=== PATIENT | male | born 1955 | race Caucasian/White ===

== ENCOUNTER 2021-06-12 10:38 | Emergency (ER) | payer OTHER ==
[2021-06-12 10:58] VITALS: BP 119/59; PULSE 74; TEMP 97.9; BMI 21.9
== END 2021-06-12 13:52 | disposition home or self-care (01) ==
LOC: JER 10:38
DX: Z04.3 Encounter for examination and observation following other accident (principal); W19.XXXA Unspecified fall, initial encounter; Y92.9 Unspecified place or not applicable
CPT/HCPCS: 70450-TC; 72125-TC; 99284-25

== ENCOUNTER 2022-08-06 17:31 | Emergency (ER) | payer OTHER ==
[2022-08-06] MEDS ORDERED: DIPHTH,PERTUSS(ACELL),TET 0.5 ML DISP.SYRIN IM ONE ×2 (17:50→17:55)
[2022-08-06 17:52] VITALS: BP 111/57; PULSE 75; RESP 18; TEMP 98.2; BMI 25.0
== END 2022-08-06 20:09 | disposition home or self-care (01) ==
LOC: SUPCPDRO 17:31 → FER 17:31
PROC: 3E0234Z Introduction of Serum, Toxoid and Vaccine into Muscle, Percutaneous Approach (ICD-10-PCS; principal; 2022-08-06)
DX: S00.93XA Contusion of unspecified part of head, initial encounter (principal); V00.181A Fall from other rolling-type pedestrian conveyance, initial encounter
CPT/HCPCS: 70450-TC; 72125-TC; 90471; 90715; 99284-25

== ENCOUNTER 2022-12-11 19:55 | Emergency (ER) | payer OTHER ==
[2022-12-11 20:33] VITALS: BP 112/56; PULSE 72; RESP 16; TEMP 97.8; BMI 25.0
== END 2022-12-11 21:02 | disposition home or self-care (01) ==
LOC: FER 19:55
DX: Z04.1 Encounter for examination and observation following transport accident (principal)
CPT/HCPCS: 99282-25

== ENCOUNTER 2023-02-03 17:18 | Emergency (ER) | payer OTHER ==
[2023-02-03] MEDS ORDERED: DIPHTH,PERTUSS(ACELL),TET 0.5 ML DISP.SYRIN IM ONE ×2 (17:34→18:04)
== END 2023-02-03 18:23 | disposition home or self-care (01) ==
LOC: FER 17:18
PROC: 3E0234Z Introduction of Serum, Toxoid and Vaccine into Muscle, Percutaneous Approach (ICD-10-PCS; principal; 2023-02-03)
DX: S60.512A Abrasion of left hand, initial encounter (principal); W01.0XXA Fall on same level from slipping, tripping and stumbling without subsequent striking against object, initial encounter
CPT/HCPCS: 73130-TC-LT-FY; 90471; 90715; 99283-25

== ENCOUNTER 2023-02-22 10:56 | Emergency (ER) | payer OTHER ==
[2023-02-22 11:09] VITALS: BP 103/56; PULSE 80; RESP 16; TEMP 97.4; BMI 25.0
== END 2023-02-22 11:39 | disposition home or self-care (01) ==
LOC: FER 10:56
DX: S20.411A Abrasion of right back wall of thorax, initial encounter (principal); W01.198A Fall on same level from slipping, tripping and stumbling with subsequent striking against other object, initial encounter
CPT/HCPCS: 99282-25

== ENCOUNTER 2023-05-30 12:38 | Inpatient (IN) | payer OTHER ==
[2023-05-30] MEDS: SODIUM CHLORIDE 0.9% 1000 ML INFUS.BAG IV ONE (13:46)
[2023-05-30 13:54] LABS: HEMATOCRIT 34.5 % (35.4-49); HEMOGLOBIN 11.3 G/dL (11.7-16.9); MCHC 32.8 g/dl (32.0-35.9); MEAN CELL VOLUME 100.5 fl (80-96); PLATELET COUNT 276.8 10^3/uL (134-434); RBC 3.43 10^6/uL (4.00-5.60); RDW 14.1 % (11.9-15.9); WHITE BLOOD COUNT 27.4 10^3/uL (4.0-10.8)
[2023-05-30 14:05] LABS: ALBUMIN 3.6 g/dl (3.4-5.0); BILIRUBIN,TOTAL 0.4 mg/dl (0.2-1); CREATININE 0.9 mg/dl (0.6-1.3); POTASSIUM 4.7 mmol/L (3.5-5.1); TOT PROT 5.9 g/dl (6.4-8.2)
[2023-05-30] MEDS ORDERED: PIPERACILLIN/TAZOBACTAM 4.5 GM VIAL IVPB ONE (14:07)
[2023-05-30] MEDS: PIPERACILLIN/TAZOB 4.5 GM 4.5 GM in DEXTROSE 5%-WATER 100 ML IVPB ONE (14:15)
[2023-05-30 14:51] LABS: PLATELET ESTIMATE ADEQUATE
[2023-05-30] MEDS ORDERED: ALBUTEROL SO4 2.5/IPRATROPIUM 0.5 INH SOL 3 ML VIAL.NEB. NEB PRN (19:54)
[2023-05-30] MEDS: PIPERACILLIN/TAZOB 3.375 GM 3.375 GM in DEXTROSE 5%-WATER - 50 ML IVPB SCH (22:01)
[2023-05-31] MEDS ORDERED: PIPERACILLIN/TAZOB 3.375 GM 3.375 GM in DEXTROSE 5%-WATER - 50 ML IVPB SCH ×2 (02:00→03:00)
[2023-05-31] MEDS: LEVOTHYROXINE NA 50 MCG TABLET (FP) PO SCH (06:25)
[2023-05-31] MEDS ORDERED: guaiFENesin/D-METHORPHAN HB 10 ML UNIT-DOSE CUPS PO PRN (07:40)
[2023-05-31] MEDS ORDERED: LORATADINE 10 MG TABLET PO PRN (07:41)
[2023-05-31 09:35] LABS: ALBUMIN 3.4 g/dl (3.4-5.0); BILIRUBIN,TOTAL 0.5 mg/dl (0.2-1); CALCIUM 8.7 mg/dl (8.5-10.1); CREATININE 0.9 mg/dl (0.6-1.3); PHOSPHOROUS 3.3 (2.5-4.9); POTASSIUM 4.4 mmol/L (3.5-5.1); TOT PROT 5.5 g/dl (6.4-8.2)
[2023-05-31] MEDS: FERROUS SO4 325 MG TABLET (FP) PO SCH (09:53)
[2023-05-31] MEDS: ALBUTEROL SO4 2.5/IPRATROPIUM 0.5 INH SOL 3 ML VIAL.NEB. NEB SCH (09:53)
[2023-05-31] MEDS: ENOXAPARIN NA (PORCINE) 40 MG/0.4 ML DISP.SYRIN SQ SCH (09:53)
[2023-05-31] MEDS ORDERED: SODIUM BICARBONATE 650 MG TABLET PO SCH (10:00)
[2023-05-31] MEDS ORDERED: LEVOTHYROXINE SODIUM PO SCH (10:00)
[2023-05-31 10:35] LABS: BASO % 0.1 % (0-2.0); EOS % 3.5 % (0-4.5); HEMATOCRIT 33.3 % (35.4-49); HEMOGLOBIN 11.1 GM/dL (11.7-16.9); LYMPH % 18.8 % (8-40); MCH 32.8 pg (25.7-33.7); MCHC 33.4 g/dl (32.0-35.9); MEAN CELL VOLUME 98.2 fl (80-96); MEAN PLT VOLUME 9.3 fl (7.5-11.1); NEUT % 68.6 % (42.8-82.8); PLATELET COUNT 251 10^3/uL (134-434); RBC 3.39 M/mm3 (4.00-5.60); RDW 14.2 % (11.9-15.9); WHITE BLOOD COUNT 11.4 K/mm3 (4.0-10.0)
[2023-05-31] MEDS ORDERED: ACETAMINOPHEN 500 MG TABLET (FP) PO PRN (12:06)
[2023-05-31] MEDS: guaiFENesin/D-METHORPHAN HB 10 ML UNIT-DOSE CUPS PO SCH (13:09)
[2023-05-31] MEDS: PIPERACILLIN/TAZOB 3.375 GM 3.375 GM in DEXTROSE 5%-WATER - 50 ML IVPB SCH (19:07)
[2023-06-01 08:24] LABS: HEMATOCRIT 33.8 % (35.4-49); MCH 32.4 pg (25.7-33.7); MCHC 32.4 g/dl (32.0-35.9); MEAN PLT VOLUME 9.2 fl (7.5-11.1); PLATELET COUNT 285.4 10^3/uL (134-434); RBC 3.38 10^6/uL (4.00-5.60); WHITE BLOOD COUNT 9.5 10^3/uL (4.0-10.8)
[2023-06-01 08:49] LABS: CALCIUM 8.6 mg/dl (8.5-10.1); CREATININE 0.9 mg/dl (0.6-1.3); MAGNESIUM 1.9 mg/dL (1.8-2.4); PHOSPHOROUS 3.4 (2.5-4.9)
[2023-06-01] MEDS: AMPICILLIN NA/SULBACTAM NA 3 GM in SODIUM CHLORIDE 100 ML IVPB SCH (09:02)
[2023-06-01] MEDS: DOCUSATE SODIUM 100 MG CAPSULE (FP) PO PRN (09:03)
[2023-06-01 16:45] VITALS: BMI 23.7
[2023-06-01 21:50] VITALS: RESP 18
[2023-06-02 08:28] LABS: HEMATOCRIT 32.3 % (35.4-49); HEMOGLOBIN 10.7 G/dL (11.7-16.9); MCH 33.2 pg (25.7-33.7); MCHC 33.2 g/dl (32.0-35.9); MEAN CELL VOLUME 100.1 fl (80-96); MEAN PLT VOLUME 9.1 fl (7.5-11.1); PLATELET COUNT 270.1 10^3/uL (134-434); RBC 3.23 10^6/uL (4.00-5.60)
[2023-06-02 09:23] LABS: CALCIUM 8.5 mg/dl (8.5-10.1); CREATININE 0.7 mg/dl (0.6-1.3); POTASSIUM 4.3 mmol/L (3.5-5.1)
[2023-06-02] MEDS: AMPICILLIN NA/SULBACTAM NA 3 GM in SODIUM CHLORIDE 100 ML IVPB SCH (14:05)
[2023-06-02 14:43] VITALS: BP 126/62; PULSE 88; TEMP 98
== END 2023-06-02 17:14 | DRG 179 ==
LOC: FER 12:38 → FM/S 15:04
PROVIDERS: ATTEND Internal Medicine
DX: J69.0 Pneumonitis due to inhalation of food and vomit (principal); E03.9 Hypothyroidism, unspecified; N40.0 Benign prostatic hyperplasia without lower urinary tract symptoms; F79 Unspecified intellectual disabilities; R62.50 Unspecified lack of expected normal physiological development in childhood
CPT/HCPCS: 0241U-QW; 36415; 71045-TC-FY; 80048; 80053; 81003; 81015; 82607; 82746; 83735; 83880; 84100; 84439; 84443; 85025; 85027; 87040; 87086; 87635; 87899; 93005; 93010; 94640; 99285-25

== ENCOUNTER 2024-11-17 19:02 | Emergency (ER) | payer OTHER ==
[2024-11-17 19:22] VITALS: BP 124/76; PULSE 81; RESP 17; TEMP 98.2; BMI 24.8
[2024-11-17] MEDS ORDERED: CIPROFLOXACIN 250 MG TABLET (RESTRICTED TO ID) PO ONE (19:55)
[2024-11-17] MEDS: CIPROFLOXACIN 500 MG TABLET (RESTRICTED TO ID) PO ONE (20:09)
== END 2024-11-17 20:18 | disposition home or self-care (01) ==
LOC: FER 19:02
DX: N30.00 Acute cystitis without hematuria (principal)
CPT/HCPCS: 81003; 81015; 87086; 99283-25